=== PATIENT | female | born 1995 | race Caucasian/White ===

== ENCOUNTER 2022-10-14 16:56 | Outpatient (CLI) | payer MEDICAID, SELFPAY ==
[2022-10-14 17:25] VITALS: TEMP 36.3
[2022-10-14 17:26] VITALS: BP 106/57; PULSE 84
[2022-10-14 17:28] VITALS: BMI 27.1
[2022-10-14 17:47] LABS: Bilirubin Urine Neg (Negative); Blood Urine Trace (Negative); Glucose Urine UA Norm (Normal); Ketones Urine Negative (Negative); Leukocyte Esterase Urine Negative (Negative); Nitrate Urine Negative (Negative); Protein Urine Neg (Negative); Specific Gravity, Urine 1.025 (1.005-1.030); Urine Appearance SL Hazy (CLEAR); Urine Color Yellow (Yellow); Urobilinogen Urine Neg (Negative); pH Urine 5 (5-7)
[2022-10-14 17:49] LABS: RBC Urine 0-4 /hpf (0-2); WBC Urine 0-4 /hpf (0-5)
[2022-10-14 17:50] LABS: Add Urine Culture? No; Bacteria Urine 1+ /hpf; Mucus Urine 1+ /hpf
--- NOTE | 2022-10-14 17:51 | USR_ITS ---
PROCEDURE INFORMATION: Exam: US Retroperitoneal; Complete; Kidneys and Bladder Exam date and time: 10/14/2022 6:13 PM Age: 26 years old Clinical indication: Abdominal pain; Right; ; Patient HX: RT sided flank and back pain x 2 hours. [place] gestation, 24w 3d. ; Additional info: Low back pain TECHNIQUE: Imaging protocol: Real-time ultrasound of the retroperitoneum with image documentation. Complete exam focused on the kidneys and bladder. COMPARISON: US OB >= 14 weeks fetus [id number] 09/21/2022 1:34 PM FINDINGS: Right kidney: Right kidney measures 10.3 cm in length. No stones. There is mild pelvocaliectasis. Left kidney: Left kidney measures 11.5 cm in length. No stones. There is mild pelvocaliectasis. Urinary bladder: Unremarkable. US/US renal BI* [id number] IMPRESSION: Symmetric mild pelvocaliectasis of the kidneys.
[2022-10-14] MEDS: acetaminophen 500 mg Tablet 1000 MG PO (18:40)
== END 2022-10-14 18:50 | disposition home or self-care (01) ==
LOC: OPOB 17:05 → OBGYN 17:06
PROVIDERS: Visit Provider Family Medicine
DX: O26.899 Other specified pregnancy related conditions, unspecified trimester (principal); Z3A.00 Weeks of gestation of pregnancy not specified; M54.50 Low back pain, unspecified
CPT/HCPCS: 76770; 81001; 99211

== ENCOUNTER 2023-01-11 18:45 | Outpatient (CLI) | payer MEDICAID, SELFPAY ==
[2023-01-11 18:45] VITALS: BMI 27.2
[2023-01-11 19:01] VITALS: BP 104/69; PULSE 81
[2023-01-11] MEDS: acetaminophen 500 mg Tablet 1000 MG PO (19:33)
[2023-01-11 19:36] VITALS: BP 99/60; PULSE 80
[2023-01-11 19:47] VITALS: BP 99/60; PULSE 80; RESP 17; TEMP 36.4
== END 2023-01-11 19:50 | disposition home or self-care (01) ==
LOC: OPOB 18:52 → OBGYN 18:53
PROVIDERS: Visit Provider Family Medicine
DX: O47.1 False labor at or after 37 completed weeks of gestation (principal); Z3A.37 37 weeks gestation of pregnancy
CPT/HCPCS: 59025; 99211

== ENCOUNTER 2023-01-21 15:06 | Outpatient (CLI) | payer MEDICAID, SELFPAY ==
[2023-01-21 15:06] VITALS: RESP 17; BMI 28.3
[2023-01-21 15:22] VITALS: BP 99/61; PULSE 94
[2023-01-21 15:37] VITALS: BP 104/59; PULSE 85
[2023-01-21 15:52] VITALS: BP 101/59; PULSE 85
== END 2023-01-21 16:00 | disposition home or self-care (01) ==
LOC: OPOB 15:11 → OBGYN 15:11
PROVIDERS: Visit Provider Family Medicine
DX: O47.9 False labor, unspecified (principal); Z3A.00 Weeks of gestation of pregnancy not specified
CPT/HCPCS: 59025; 99211

== ENCOUNTER 2023-01-27 21:07 | Outpatient (CLI) | payer MEDICAID, SELFPAY ==
[2023-01-27 20:58] VITALS: BMI 28.7
[2023-01-27 21:12] VITALS: BP 108/66; PULSE 96
[2023-01-27 21:23] VITALS: RESP 16
[2023-01-27 21:30] LABS: Actim Prom Negative
[2023-01-27 21:31] LABS: Nitrazine Paper, PH Negative
[2023-01-27 22:55] VITALS: BP 110/68; PULSE 97
[2023-01-27 23:25] VITALS: BP 110/68; PULSE 97; RESP 17; TEMP 36.6
== END 2023-01-27 23:30 | disposition home or self-care (01) ==
LOC: OPOB 21:08 → OBGYN 21:09
PROVIDERS: Visit Provider Family Medicine
DX: O26.899 Other specified pregnancy related conditions, unspecified trimester (principal); N89.8 Other specified noninflammatory disorders of vagina; Z3A.00 Weeks of gestation of pregnancy not specified
CPT/HCPCS: 59025; 83986; 84112; 99211

== ENCOUNTER 2023-01-28 13:08 | Outpatient (CLI) | payer MEDICAID, SELFPAY ==
[2023-01-28] VITALS (7 sets, daily range): BP systolic 107–114; BP diastolic 64–74; PULSE 80–83; TEMP 36; BMI 28.3
== END 2023-01-28 15:10 | disposition home or self-care (01) ==
LOC: OPOB 13:15 → OBGYN 13:29
PROVIDERS: Absent Provider Family Medicine; Visit Provider Family Medicine
DX: O26.899 Other specified pregnancy related conditions, unspecified trimester (principal); R10.9 Unspecified abdominal pain; Z3A.00 Weeks of gestation of pregnancy not specified
CPT/HCPCS: 59025; 99211

== ENCOUNTER 2023-01-31 00:08 | Inpatient (IN) | payer MEDICAID, SELFPAY ==
[2023-01-30] VITALS (8 sets, daily range): BP systolic 108; BP diastolic 66; PULSE 88–100; TEMP 36.2; O2SAT 97–98; BMI 28.3
[2023-01-30 21:33] LABS: Basophils # 0.1 10^3/uL (0.0-0.1); Basophils % 0.3 %; Eosinophils # 0.1 10^3/uL (0.0-0.8); Eosinophils % 0.5 %; Hematocrit 31.1 % (37.0-47.0); Hemoglobin 9.6 g/dL (11.5-15.3); Lymphocytes # 1.7 10^3/uL (0.8-4.8); Lymphocytes % 8.9 %; Mean Corpuscular HGB Conc 30.9 g/dL (30.0-36.0); Mean Platelet Volume 11.9 fL (7.4-10.4); Monocytes # 1.2 10^3/uL (0.2-0.9); Monocytes % 6.1 %; Neutrophils % 83.5 %; Nucleated Red Blood Cells % 0 %; Platelet Count 211 10^3/cmm (130-400); Red Blood Count 3.84 10^6/uL (4.1-5.3); Red Cell Distribution Width 14.9 % (12.1-15.1)
[2023-01-30] MEDS: ampicillin 2,000 MG in sodium chloride 0.9% (plus) 50 ML 100 MG IV (21:42)
[2023-01-30] MEDS: dextrose 5%-lactated ringers 1,000 ML 125 ML IV (21:42)
[2023-01-30] MEDS: lactated ringers 1,000 ML 999 ML IV (23:30)
[2023-01-31] VITALS (50 sets, daily range): BP systolic 90–145; BP diastolic 50–84; PULSE 81–105; RESP 15–18; TEMP 36–37.6; O2SAT 90–100
--- NOTE | 2023-01-31 00:19 | ANES.PREANE2 ---
Pre-Anesthetic Assessment Height/Weight: Height 1.57 m Temp Pulse BP Pulse Ox 97.2 F L 97 108/66 98 01/30/23 20:25 01/30/23 20:44 01/30/23 20:26 01/30/23 20:44 Labor epidural Familial anesthetic complications: None Was Beta Shanice taken within 24 hours: N/A Was Clonidine taken within 24 hours: N/A Social No alcohol and No tobacco Exam alert, oriented x 3, clear to auscultation bilaterally and regular rate & rhythm Airway Submandibular: within normal limits Cervical ROM: within normal limits Mallampati: Class III Dentition: full History/ROS No significant history except as noted and No significant complaints Pulmonary None reported CV/HEM Hypertension None reported Hepatic None reported GI None reported Metabolic None reported Musc/skel None reported Neuropsych None reported Anesthetic Plan ASA status: 2 Anesthesia: Anesthesia Evaluation, Eval. for regional block and General Risk of > 500 ml blood loss (7ml/kg in children): No Medications/Allergies Home Medications Medication Instructions Recorded Confirmed Last Taken Type pren vit comb.1-iron cb-FA-DSS 1 tab PO DAILY 10/14/22 10/14/22 Unknown History Allergies Allergy/AdvReac Type Severity Reaction Status Date / Time No Known Allergies Allergy Verified 10/14/22 18:40 Current Medications Generic Name Dose Route Start Last Admin Trade Name Zohra PRN Reason Stop Dose Admin Dextrose/Lactated Ringer's 1,000 mls @ 125 mls/hr 01/30/23 21:15 01/30/23 23:30 Dextrose 5%-Lactated Ringers IV 0 mls/hr .Q8H MIKEL Infusion Oxytocin 30 unit/ Sodium 503 mls @ 1 mls/hr 01/30/23 21:45 01/30/23 23:45 Chloride IV 3 mls/hr .Q24H MIKEL 3 mls/hr Titration Protocol Lactated Ringer's 1,000 mls @ 999 mls/hr 01/30/23 23:22 01/30/23 23:30 Lactated Ringers IV 999 mls/hr .Q1H1M PRN Administration See label comments Data Anesthesia 01/30/23 21:24 Short CBC 01/30/23 Range/Units 21:24 WBC 19.0 H (4.0-10.0) 10^3/uL Hgb 9.6 L (11.5-15.3) g/dL Hct 31.1 L (37.0-47.0) % MCV 81.0 (81-99) fl Plt Count 211 (130-400) 10^3/cmm Neut % (Auto) 83.5 % Neut # (Auto) 15.90 H (1.8-7.7) 10^3/uL Cardiac Studies: No Data to Display
--- NOTE | 2023-01-31 00:53 | ANES.PROC ---
Anesthesia Procedures Procedure/Date: 01/31/23 Epidural: Time Out Performed: Yes Consents Signed: Procedure Consent and NPO Consent Consent: requested by attending/covering physician, from patient, risks and benefits reviewed and patient agrees to proceed Lumbar Level: L3-L4 Epidural position: sitting Epidural procedure: sterile prep of area (betadine), 1% lidocaine to numb the area (3 mLs), neg for paresthesia, test dose given, 1.5% xylocaine 1:200k epi (3 mL/2 mL), 0.2% Ropivacaine bolus ml (5 mLs), placed PCEA, no systemic response, sterile dressing applied, L.U.D. no apparent complications and 0.2% Ropiavacaine @ mls/hr (10 mLs/hr) Additional Comments: HELADIO 5cm. Catheter placed to 10cm
[2023-01-31] MEDS: ampicillin 1,000 MG in sodium chloride 0.9% (plus) 50 ML 100 MG IV (01:48)
--- NOTE | 2023-01-31 03:35 | PM.OPHPUD ---
Labor & Delivery H&P Update Date of Procedure: January 31, 2023 Date H&P Performed: 01/26/23 Admission Diagnosis: 27-year-old 3 para 1-0-1-1 with an estimated gestational age of 40 weeks presenting with spontaneous rupture of membranes Planned procedure: Spontaneous vaginal delivery Other information: The patient presented to the hospital complaining of rupture of membranes. She stated that her membranes may have ruptured up to 2 days ago. She had been having intermittent leaking since that time. She was found to have grossly ruptured membranes. Her is otherwise been unremarkable. She has had consistent care. Her blood type is A-. She was antibody screen negative. Her GBS status was positive. Her infectious disease profile was within normal limits. She is rubella immune. Related Problem List Diagnoses (1) 40 weeks gestation of : (2) Spontaneous rupture of membranes: (3) GBS (group B Streptococcus carrier), +RV culture, currently : A&P Assessment and plan (1) 40 weeks gestation of : I anticipate routine labor and spontaneous vaginal delivery. She is being placed on GBS protocol. Status: Acute (2) Spontaneous rupture of membranes: Status: Acute (3) GBS (group B Streptococcus carrier), +RV culture, currently : Status: Acute
--- NOTE | 2023-01-31 04:10 | P.PCNOB_ITS ---
Delivery Note: Date of delivery: January 31, 2023 Pre-delivery diagnoses: 27-year-old 3 para 1-0-1-1 at 40 weeks EGA Post-delivery diagnoses: Status post spontaneous vaginal delivery Procedure: Spontaneous vaginal delivery Delivering Physician: Aries Colvin Estimated blood loss (mL): 150 Pre-Delivery Course: The patient presented to the hospital with spontaneous rupture of membranes. Her labor was augmented with Pitocin. She progressed to complete without difficulty. heart tones demonstrated good variability with accelerations. Prior to pushing she was having early decelerations with some late deceler ations. Delivery: DELIVERY: The patient progressed to complete without difficulty. She delivered a male with a weight of 7 pounds 8 ounces with Apgars of 9, 10. The baby was delivered from the PROMISE position and placed on the mother's abdomen. The cord was then clamped and cut. There was no nuchal cord. There was no meconium. The placenta and 3 vessel cord were delivered intact shortly thereafter. The perineum and vaginal vault were carefully examined. The patient was noted to have superficial lacerations of the clitoral ku as well as between the labia majora and minora. No repair was required. Both the mother and the baby were in stable condition. Post-Delivery Status: Good A&P Assessment and plan (1) Spontaneous vaginal delivery: I anticipate routine care. (2) GBS (group B Streptococcus carrier), +RV culture, currently : Coding Level of Care Code Acute Code for Chg Fwd Diagnoses Spontaneous vaginal delivery O80 GBS (group B Streptococcus carrier), +RV culture, currently O99.820
[2023-01-31] MEDS: benzocaine-menthol 78 gm Canister 1 SPRAY TOPICAL (06:23)
[2023-01-31] MEDS: prenatal vitamin Capsule 1 CAP PO (10:43)
[2023-01-31] MEDS: ibuprofen 800 mg tablet PO ×3 (10:43→23:53)
[2023-01-31] MEDS: docusate sodium 100 mg Capsule PO (10:43)
[2023-02-01 00:33] LABS: Hemoglobin 9.1 g/dL (11.5-15.3); Mean Corpuscular HGB Conc 31.4 g/dL (30.0-36.0); Mean Corpuscular Hemoglobin 25.6 pg (28.0-34.0); Mean Corpuscular Volume 81.5 fl (81-99); Platelet Count 203 10^3/cmm (130-400); Red Blood Count 3.56 10^6/uL (4.1-5.3); White Blood Count 15.8 10^3/uL (4.0-10.0)
[2023-02-01 04:32] VITALS: BP 107/65; PULSE 68; TEMP 36.9; O2SAT 97
--- NOTE | 2023-02-01 07:49 | PM.OBGYDC ---
Discharge Providers FERRYBOAT OPERATOR CABLE Date of Admission: 01/31/23 00:08 Date of Discharge: 02/01/23 Attending Provider at Admission: Aries Colvin MD Attending Provider at Discharge: Aries Colvin MD Diagnoses at Discharge Discharge Diagnosis (1) Spontaneous vaginal delivery: Status: Acute (2) GBS (group B Streptococcus carrier), +RV culture, currently : Status: Acute Reason for Visit Reason for Visit: Possible ROM, contractions Hospital Course Hospital Course The patient arrived to the hospital complaining of rupture membranes. She is not exactly sure when the membranes were ruptured. She states it could have been sometime in the last couple of days prior to admission. Her labor was augmented with Pitocin. She progressed to complete and had an unremarkable delivery of a healthy appearing . There were no complications. Her course was also unremarkable. She breast-fed well. Her bleeding was within normal limits. Her pain was well controlled. Information Peripartum Data: Infant Delivery Method: Vaginal Physical Exam Narrative: The patient is alert. She appears comfortable. Her heart has a regular rate and rhythm with no murmurs appreciated. Lungs are clear to auscultation bilaterally. Her fundus is firm and below the umbilicus. Urinary Catheter Management: Jamison Latex: Cath Placed During This Visit: yes, but has since been removed by the nurse Reason for Continuing Indwelling Catheter: Decision to DC Catheter Urinary Catheter Date of Insertion: 01/31/23 Urinary Catheter Time of Insertion: 01:15 Date Urinary Catheter Removed: 01/31/23 Time Urinary Catheter Discontinued: 03:30 Discharge Data Studies Completed and Pending Laboratory Results WBC 15.8 10^3/uL (4.0-10.0) H 02/01/23 00:23 RBC 3.56 10^6/uL (4.1-5.3) L 02/01/23 00:23 Hgb 9.1 g/dL (11.5-15.3) L 02/01/23 00:23 Hct 29.0 % (37.0-47.0) L 02/01/23 00:23 MCV 81.5 fl (81-99) 02/01/23 00:23 MCH 25.6 pg (28.0-34.0) L 02/01/23 00:23 MCHC 31.4 g/dL (30.0-36.0) 02/01/23 00:23 RDW 15.0 % (12.1-15.1) 02/01/23 00:23 Plt Count 203 10^3/cmm (130-400) 02/01/23 00:23 MPV 12.0 fL (7.4-10.4) H 02/01/23 00:23 Neut % (Auto) 83.5 % 01/30/23 21:24 Lymph % (Auto) 8.9 % 01/30/23 21:24 [place] % (Auto) 6.1 % 01/30/23 21:24 Eos % (Auto) 0.5 % 01/30/23 21:24 Baso % (Auto) 0.3 % 01/30/23 21:24 Neut # (Auto) 15.90 10^3/uL (1.8-7.7) H 01/30/23 21:24 Lymph # (Auto) 1.7 10^3/uL (0.8-4.8) 01/30/23 21:24 [place] # (Auto) 1.2 10^3/uL (0.2-0.9) H 01/30/23 21:24 Eos # (Auto) 0.1 10^3/uL (0.0-0.8) 01/30/23 21:24 Baso # (Auto) 0.1 10^3/uL (0.0-0.1) 01/30/23 21:24 Nucleated RBC % (auto) 0 % 01/30/23 21: Nucleated RBCs # 0.0 /100WBC 01/30/23 21:24 Vitals Last Vital Signs Temp 98.4 F 02/01/23 04:32 Pulse 68 02/01/23 04:32 Resp 15 01/31/23 22:00 BP 107/65 02/01/23 04:32 Pulse Ox 97 02/01/23 04:32 O2 Del Method Room Air 02/01/23 04:32 Discharge Plan Discharge Patient Disposition: Home Condition: Stable Prescriptions: New ibuprofen 800 mg Tablet 800 mg PO TID Qty: 45 0RF Continued pren vit comb.1-iron cb-FA-DSS 1 tab PO DAILY ferrous sulfate 27 mg iron Tablet 27 mg PO DAILY Discharge Orders: Discharge Order (Routine); Ordered 02/01/23 Ordered By: Aries Colvin Referrals: Aries Colvin MD [Physician] - 6 Weeks Discharge Diet: Usual diet Discharge Activity: Limit activity as instructed Patient Instructions: Opioid Safety Discharge Attestations FERRYBOAT OPERATOR CABLE Time Spent in Discharge Care*: less than 30 min Coding Level of Care Code Acute Code for Chg Fwd Diagnoses Spontaneous vaginal delivery O80 GBS (group B Streptococcus carrier), +RV culture, currently O99.820
[2023-02-01] MEDS: prenatal vitamin Capsule 1 CAP PO (09:39)
[2023-02-01] MEDS: ibuprofen 800 mg tablet PO (09:39)
[2023-02-01] MEDS: docusate sodium 100 mg Capsule PO (09:41)
[2023-02-01 09:45] VITALS: BP 107/69; PULSE 84; TEMP 36.6; O2SAT 96
--- NOTE | 2023-02-01 10:44 | PC.NURSE ---
mother and baby in bed when rounding, safe sleep practices education reinforced
--- NOTE | 2023-02-01 11:42 | ANE.PACU2 ---
Inpatient post-anesthesia follow up: Airway intact: Yes Vital signs: Temperature 97.9 F Pulse Rate 84 Respiratory Rate 15 Blood Pressure 107/69 Pulse Oximetry 96 Oxygen Delivery Me thod Room Air Oxygen Flow Rate Fraction of Inspir ed Oxygen Hydration adequate: Yes Nausea and vomiting: No Pain level: 2 Mental status: Baseline
[2023-02-01 13:00] VITALS: BP 107/69; PULSE 84; TEMP 36.6; O2SAT 96
== END 2023-02-01 13:00 | disposition home or self-care (01) | DRG 807 ==
LOC: OPOB 00:09 → OBGYN 00:09
PROVIDERS: Admitting Provider Family Medicine; Visit Provider Family Medicine
DX: O99.824 Streptococcus B carrier state complicating childbirth (principal); Z37.0 Single live birth; O76 Abnormality in fetal heart rate and rhythm complicating labor and delivery; Z3A.40 40 weeks gestation of pregnancy
CPT/HCPCS: 36415; 51702; 59025; 59409; 83986; 85025; 85027; 99211; J0290; J2795; J7040; J7120; J7121

== ENCOUNTER 2024-02-05 10:32 | Emergency (ER) | payer MEDICAID, SELFPAY ==
[2024-02-05 10:42] VITALS: BP 119/69; PULSE 88; RESP 17; TEMP 37; O2SAT 97; BMI 25.9
--- NOTE | 2024-02-05 11:02 | ED_ITS ---
HPI - Skin/Abscess/Foreign Bdy General: Chief complaint: Skin/Abscess/Foreign Body Stated complaint: 25 weeks preg, red rash all over body Time Seen by Provider: 02/05/24 10:41 History of Present Illness: 28-year-old female presents emergency ro om complaining of a rash. Patient is 25 weeks she has rashes shoulder operative area areas over her body extremities groin periumbilical lower extremities and upper extremities bilaterally does not seem to be a clear pattern to across midline is not vesicular in nature it is very pruritic she has raised papular rash. No vesicles. No vaginal discharge or bleeding no pelvic cramping Associated symptoms: Deny chills or fever(s) Review of Systems Const: Denies: fever(s) or chills Card: Denies: chest pain Resp: Denies: dyspnea GI: Denies: abdominal pain : Denies: dysuria, urinary frequency or urinary urgency Musc: Denies: neck pain or back pain Skin/Breast: Reports: rash and pruritus Physical Exam Const: COMMON NORMALS: no acute distress GENERAL APPEARANCE: cooperative and comfortable ORIENTATION/CONSCIOUSNESS: Yes awake, Yes oriented to person, Yes oriented to place and Yes oriented to time HENMT: COMMON NORMALS: normocephalic, atraumatic and hearing grossly normal bilaterally HEAD & SCALP: normocephalic and atraumatic Resp: COMMON NORMALS: normal respiratory effort, No retractions, No use of accessory muscles and clear to auscultation bilaterally AUSCULTATION: clear to auscultation bilaterally Cardio: COMMON NORMALS: regular rate, regular rhythm and No murmurs present (Cardio) RATE: regular rate RHYTHM: regular rhythm Extremity: COMMON NORMALS: normal to inspection, capillary refill normal, no clubbing, cyanosis or edema, no calf tenderness and no pedal edema Neuro: SENSORIUM/ORIENTATION: Yes oriented to person, Yes oriented to place and Yes oriented to time Skin: OTHER: Ocular papular rash without vesicles raised mild erythema no purulent drainage no induration Course Vital Signs: Vital signs: Vital Signs Temperature 98.6 F 02/05/24 10:42 Pulse Rate 91 02/05/24 11:18 Respiratory Rate 17 02/05/24 10:42 Blood Pressure 119/69 02/05/24 10:42 Pulse Oximetry 98 02/05/24 11:18 MDM - Skin/Abscess/Foreign Bdy Medicial Decision Making Appears to be more of a contact dermatitis in various areas does not appear to be infectious or vesicular Kathy is osteoclasts of the midline currently not in any kind of dermatomal pattern. Will have her on a steroid taper can use [id number] topical steroids as well as antihistamines follow-up with her primary care No radiology studies performed this visit Discharge Plan Discharge Patient Disposition: Home Clinical Impression: Contact dermatitis Condition: Stable Prescriptions: New Medrol (Maynor) 4 mg tablets,dose pack See Rx Instructions .ROUTE .COMPLEX Qty: 21 0RF Rx Instructions: orally per package directions cetirizine 10 mg tablet 10 mg PO BID Qty: 60 0RF No Action pren vit comb.1-iron cb-FA-DSS 1 tab PO DAILY ferrous sulfate 27 mg iron Tablet 27 mg PO DAILY ibuprofen 800 mg Tablet 800 mg PO TID Qty: 45 0RF Discharge Orders: Discharge ED (Routine); Ordered 02/05/24 Ordered By: Gil Mullins Referrals: Aries Colvin MD [Primary Care Provider] - Patient Instructions: Contact Dermatitis (ED), Opioid Safety, Pain Management Activity Restrictions/Additional Instructions: Thank you for choosing [facility] for your healthcare needs today. It is very important that you follow up as instructed or that you return to the Emergency Department should you have concerns or if your condition changes or worsens in any way. You were seen today with a rash. The rash does not look infectious looks like contact dermatitis irritation of the skin rooms and he may have come to contact with. Recommended steroid taper as well as cetirizine 10 mg twice daily until resolved. Follow-up with primary care doctor. Coding Level of Care Code ED Design Printing Machine Setter for Peter Castrejon
[2024-02-05 11:18] VITALS: PULSE 91; O2SAT 98
== END 2024-02-05 11:19 | disposition home or self-care (01) ==
PROVIDERS: Emergency Provider Family Medicine; PCP Family Medicine
DX: O26.892 Other specified pregnancy related conditions, second trimester (principal); L25.9 Unspecified contact dermatitis, unspecified cause; Z3A.25 25 weeks gestation of pregnancy
CPT/HCPCS: 99283

== ENCOUNTER 2024-03-24 08:56 | Oncology outpatient (recurring) (ONCR) | payer MEDICAID, SELFPAY ==
[2024-03-24] MEDS: rho(d) immune globulin 1,500 unit Syringe 1500 UNIT IM (09:35)
== END 2024-04-17 23:59 | disposition home or self-care (01) ==
PROVIDERS: PCP Family Medicine; Visit Provider Family Medicine
DX: Z79.899 Other long term (current) drug therapy (principal); Z67.11 Type A blood, Rh negative
CPT/HCPCS: 96372; J2790

== ENCOUNTER 2024-04-29 14:25 | Outpatient (CLI) | payer MEDICAID, SELFPAY ==
[2024-04-29 14:25] VITALS: BMI 28.7
[2024-04-29 14:41] VITALS: BP 111/64; PULSE 78
[2024-04-29 14:56] VITALS: BP 105/66; PULSE 75
[2024-04-29 15:15] VITALS: BP 105/66; PULSE 75
== END 2024-04-29 15:15 | disposition home or self-care (01) ==
LOC: OPOB 14:28 → OBGYN 14:29
PROVIDERS: PCP Family Medicine; Visit Provider Family Medicine
DX: O36.8190 Decreased fetal movements, unspecified trimester, not applicable or unspecified (principal); Z3A.00 Weeks of gestation of pregnancy not specified
CPT/HCPCS: 59025; 99211

== ENCOUNTER 2024-05-11 16:11 | Outpatient (CLI) | payer MEDICAID, SELFPAY ==
[2024-05-11 16:10] VITALS: BMI 28.7
[2024-05-11 16:30] VITALS: BP 103/66; PULSE 83
[2024-05-11 17:00] VITALS: BP 98/64; PULSE 78
[2024-05-11 18:58] LABS: Nitrazine Paper, PH Negative
== END 2024-05-11 17:10 | disposition home or self-care (01) ==
LOC: OPOB 16:11 → OBGYN 16:12
PROVIDERS: Family Medicine; PCP Family Medicine; Visit Provider Family Medicine
DX: O26.899 Other specified pregnancy related conditions, unspecified trimester (principal); Z3A.00 Weeks of gestation of pregnancy not specified; N89.8 Other specified noninflammatory disorders of vagina
CPT/HCPCS: 59025; 83986; 99211

== ENCOUNTER 2024-05-14 01:09 | Inpatient (IN) | payer MEDICAID, SELFPAY ==
[2024-05-13] VITALS (10 sets, daily range): BP systolic 99–109; BP diastolic 58–72; PULSE 78–93; TEMP 35.5; BMI 30.2
[2024-05-13 21:45] LABS: Actim Prom Negative
[2024-05-14] VITALS (48 sets, daily range): BP systolic 84–128; BP diastolic 46–81; PULSE 65–97; RESP 16; TEMP 36.6–36.8; O2SAT 98–100
[2024-05-14 00:51] LABS: Basophils # 0.1 10^3/uL (0.0-0.1); Basophils % 0.4 %; Eosinophils # 0.1 10^3/uL (0.0-0.8); Eosinophils % 0.8 %; Lymphocytes # 2.3 10^3/uL (0.8-4.8); Lymphocytes % 18.9 %; Mean Corpuscular HGB Conc 31.3 g/dL (30-55); Mean Corpuscular Hemoglobin 24.8 pg (27-33); Mean Corpuscular Volume 79.2 fl (85-98); Mean Platelet Volume 11.5 fL (7.4-10.4); Monocytes # 0.8 10^3/uL (0.2-0.9); Monocytes % 6.8 %; Neutrophils # 8.84 10^3/uL (1.8-7.7); Neutrophils % 72.6 %; Nucleated Red Blood Cells % 0 %; Platelet Count 214 10^3/cmm (157-399); Red Blood Count 3.79 10^6/uL (3.85-5.65); Red Cell Distribution Width 16.6 % (12.1-15.1); White Blood Count 12.18 10^3/uL (3.29-11.43)
[2024-05-14] MEDS: miSOPROStol 100 mcg tablet 25 MCG VAGINAL ×2 (01:00→06:24)
[2024-05-14] MEDS: lactated ringers 1,000 ML 999 ML IV (03:45)
[2024-05-14] MEDS: dextrose 5%-lactated ringers 1,000 ML 125 ML IV (04:50)
[2024-05-14] MEDS: ROPivacaine syringe 100 MG/50 ML SYRINGE 10 MG EPIDURAL ×2 (05:06→10:13)
--- NOTE | 2024-05-14 05:08 | P.ANESASSM_ITS ---
Pre-Anesthetic Assessment Height/Weight: Height 1.55 m Weight 72.575 kg Temp Pulse BP Pulse Ox O2 Del Method 95.9 F L 90 107/62 99 Room Air 05/13/24 23:30 05/14/24 05:05 05/14/24 05:05 05/14/24 05:03 05/14/24 00:04 Preop Diagnosis: labor pain epidural Familial anesthetic complications: none Was Beta Shanice taken within 24 hours: N/A Was Clonidine taken within 24 hours: N/A Social No alcohol and No tobacco Exam alert and oriented x 3 Airway Submandibular: within normal limits Cervical ROM: within normal limits Mallampati: Class II Dentition: full History/ROS No significant complaints Anesthetic Plan ASA status: 2 Anesthesia: Anesthesia Evaluation and Regional (specify below) Risk of > 500 ml blood loss (7ml/kg in children): No Medications/Allergies Home Medications Medication Instructions Recorded Confirmed Last Taken Type pren vit comb.1-iron cb-FA-DSS 1 tab PO DAILY 10/14/22 05/13/24 05/13/24 History ferrous sulfate 27 mg iron tablet 27 mg PO DAILY 01/31/23 05/13/24 05/13/24 History ibuprofen 800 mg tablet 800 mg PO TID #45 tabs 02/01/23 05/13/24 Unknown Rx cetirizine 10 mg tablet 10 mg PO BID #60 tabs 02/05/24 05/13/24 Unknown Rx methylprednisolone 4 mg tablets in See Rx Instructions PO .COMPLEX 02/05/24 05/13/24 Unknown Rx a dose pack (Medrol (Maynor)) #21 ea Allergies Allergy/AdvReac Type Severity Reaction Status Date / Time No Known Allergies Allergy Verified 05/13/24 22:56 Current Medications Generic Name Dose Route Start Last Admin Trade Name Freq PRN Reason Stop Dose Admin Dextrose/Lactated Ringer's 1,000 mls @ 125 mls/hr 05/14/24 00:02 05/14/24 04:50 Dextrose 5%-Lactated Ringers IV 125 mls/hr .Q8H PRN Administration per label comments Lactated Ringer's 1,000 mls @ 999 mls/hr 05/14/24 03:37 05/14/24 04:46 Lactated Ringers IV Infused .Q1H1M PRN Infusion See label comments PFSH Anesthesia Female Reproductive History : 4 Data Anesthesia 05/14/24 00:16 Short CBC 05/14/24 Range/Units 00:16 WBC 12.18 H (3.29-11.43) 10^3/uL Hgb 9.40 L (11.27-16.99) g/dL Hct 30.0 L (36-47) % MCV 79.2 L (85-98) fl Plt Count 214 (157-399) 10^3/cmm Neut % (Auto) 72.6 % Neut # (Auto) 8.84 H (1.8-7.7) 10^3/uL Blood Bank 05/14/24 00:16 Blood Type A Negative Rho(D) Type Rh negative Antibody Screen Positive Cardiac Studies: 2 No Data to Display
--- NOTE | 2024-05-14 05:09 | ANES.PROC ---
Anesthesia Procedures Procedure/Date: 05/14/24 Epidural: Time Out Performed: Yes Consents Signed: Procedure Consent Consent: from patient, risks and benefits reviewed and patient agrees to proceed Lumbar Level: L3-L4 Epidural position: sitting Epidural procedure: sterile prep of area, 1% lidocaine to numb the area, 18 g needle, negative for paresthesia passed, neg for paresthesia, test dose given, 1.5% xylocaine 1:200k epi, placed PCEA, no systemic response, sterile dressing applied and L.U.D. no apparent complications Additional Comments: HELADIO at 4. negative aspiration. taped at 11 at skin. tolerate very well.
[2024-05-14] MEDS: hyDROXYzine 25 mg Capsule 50 MG PO (05:54)
--- NOTE | 2024-05-14 11:04 | P.HPUD_ITS ---
Labor & Delivery H&P Update Date of Procedure: May 14, 2024 Date H&P Performed: 01/26/23 Admission Diagnosis: 28-year-old 3 para 2-0-0-2 at 40 weeks estimated gestational age presenting with contractions Planned procedure: Vaginal delivery Other information: The patient is a 28-year-old 3 para 2-0-0-2 at 40 weeks estimated gestational age who presented to the hospital last night with contractions. She was checked again 3 hours after arrival. She was noted to be having contractions that were not consistent. Her cervix did not change, but her cervix was 3 cm dilated and she lived over an hour away. Due to the fact that she is a 5 with a history of relatively fast labors and her distance from the hospital as well as her 40-week gestational age, I elected to induce her. Her is otherwise been relatively unremarkable. She had consistent care. Her labs are as follows. Her blood type is A-. Her an tibody screen is negative. She received RhoGAM shot on 24 March. Her drug screen was negative. She passed her glucose screen. She was GBS negative. She is rubella immune. The remainder of her infectious disease profile is within normal limits. Related Problem List Diagnoses (1) 40 weeks gestation of : A&P Assessment and plan (1) 40 weeks gestation of : I anticipate routine induction and labor. Status: Acute
[2024-05-14] MEDS: lidocaine 2% INJ 20 mL INJECTION (11:40)
--- NOTE | 2024-05-14 11:54 | PM.DELIVERY ---
Delivery Note: Date of delivery: May 14, 2024 Pre-delivery diagnoses: 28-year-old 3 para 2-0-0-2 at 40 weeks estimated gestational age Post-delivery diagnoses: Status post spontaneous vaginal delivery Procedure: Spontaneous vaginal delivery Delivering Physician: Aries Colvin Estimated blood loss (mL): 100 Pre-Delivery Course: The patient presented to the hospital with contractions. Cytotec x 2 was placed. An epidural was placed. An amniotomy was performed. She progressed to complete without difficulty. Delivery: DELIVERY: The patient progressed to complete without difficulty. She delivered a female with a weight of 7 pounds 12 ounces with Apgars of 7, 9. The baby was delivered from the PROMISE position and placed on the mother's abdomen. The cord was then clamped and cut. There was no nuchal cord. There was no meconium. The placenta and 3 vessel cord were delivered intact shortly thereafter. The perineum and vaginal vault were carefully examined. The patient had multiple superficial lacerations along the anterior aspect of her labia minora and majora. She also had a second-degree posterior midline tear which was repaired with 3-0 Vicryl in usual fashion. Both the mother and the baby were in stable condition. Post-Delivery Status: Good History History History 3 Term 3 0 Miscarriages/Ectopic 0 Living Children 3 A&P Assessment and plan (1) Spontaneous vaginal delivery: I anticipate routine care Coding Level of Care Code Acute Code for Chg Fwd Diagnoses Spontaneous vaginal delivery O80
--- NOTE | 2024-05-14 14:00 | ANE.PACU2 ---
Inpatient post-anesthesia follow up: Airway intact: Yes Vital signs: Temperature 98.1 F Pulse Rate 72 Respiratory Rate 15 Blood Pressure 98/54 Pulse Oximetry 100 Oxygen Delivery Me thod Room Air Oxygen Flow Rate Fraction of Inspir ed Oxygen Hydration adequate: Yes Nausea and vomiting: No Pain level: 1 Mental status: Baseline Epidural Start/End: Epidural Start Date: 05/14/24 Epidural Start Time: 04:45 Epidural End Date: 05/14/24 Epidural End Time: 12:46
[2024-05-14] MEDS: ibuprofen 800 mg tablet PO ×2 (14:41→21:27)
[2024-05-14] MEDS: lanolin oint 7 gm 1 APPLIC TOPICAL (14:41)
[2024-05-14] MEDS: benzocaine-menthol 78 gm Canister 1 SPRAY TOPICAL (14:41)
[2024-05-14] MEDS: oxytocin 30 UNIT/500 ML BAG 600 UNIT IV (14:42)
--- NOTE | 2024-05-14 18:14 | PC.NURSE ---
This nurse went into pt room at 1800 and pt said she had a gush of fluid and this nurse noted a blood dripping down pt onto floor. Pt was walked to the bed and fundal rub as done by Marcio Macias Rn. Clot was noted to be coming out of vagina and pad was soaked. Fundus was firm 2 below with small amount of bleeding. Pad was weighed and noted to weigh 155 grams.
[2024-05-14] MEDS: docusate sodium 100 mg Capsule PO (21:27)
[2024-05-15 02:33] VITALS: BP 109/62; PULSE 76; RESP 16; O2SAT 99
[2024-05-15 02:58] LABS: Hematocrit 26.7 % (36-47); Mean Corpuscular Hemoglobin 23.9 pg (27-33); Mean Corpuscular Volume 79.7 fl (85-98); Mean Platelet Volume 11.2 fL (7.4-10.4); Platelet Count 203 10^3/cmm (157-399); Red Blood Count 3.35 10^6/uL (3.85-5.65); Red Cell Distribution Width 16.7 % (12.1-15.1); White Blood Count 14.51 10^3/uL (3.29-11.43)
[2024-05-15 04:29] VITALS: BP 113/69; PULSE 82; RESP 16; TEMP 36.7; O2SAT 100
--- NOTE | 2024-05-15 08:33 | PM.OBGYDC ---
Discharge Providers OPTOMETRIC TECHNICIAN Date of Admission: 05/14/24 01:09 Date of Discharge: 05/28/24 Attending Provider at Admission: Aries Colvin MD Attending Provider at Discharge: Aries Colvin MD Primary Care Provider: Aries Colvin MD Diagnoses at Discharge Discharge Diagnosis (1) Spontaneous vaginal delivery: Status: Resolved Reason for Visit Reason for Visit: possible contractions and possible ROM Hospital Course Hospital Course The patient presented to the hospital at 40 weeks with contractions. Her labor was augmented with Cytotec x 2. An amniotomy was performed. She progressed to complete and had an unremarkable vaginal delivery. Her course was also unremarkable. Her bleeding was within normal limits. Her pain was well-controlled. There were no concerns. Information Peripartum Data: Delivery Method: Vaginal Physical Exam Narrative: The patient is alert. She appears comfortable. Her heart has a regular rate and rhythm with no murmurs appreciated. Lungs are clear to auscultation bilaterally. Her fundus is firm and below the umbilicus. Urinary Catheter Management: Jamison Latex: Cath Placed During This Visit: yes Reason for Continuing Indwelling Catheter: Required Immobilization for Trauma or Surgery or Anesthesia Urinary Catheter Date of Insertion: 05/14/24 Urinary Catheter Time of Insertion: 05:30 History History History 3 Term 3 0 Miscarriages/Ectopic 0 Living Children 3 Discharge Data Studies Completed and Pending Pending at discharge Category Date Time Status Antibody Identification Routine Lab 05/14/24 00:16 Results Complete Crossmatch Routine Lab 05/14/24 00:16 Results Type and Screen Routine Lab 05/13/24 23:59 Results Laboratory Results WBC 14.51 10^3/uL (3.29-11.43) H 05/15/24 02:47 RBC 3.35 10^6/uL (3.85-5.65) L 05/15/24 02:47 Hgb 8.00 g/dL (11.27-16.99) L 05/15/24 02:47 Hct 26.7 % (36-47) L 05/15/24 02:47 MCV 79.7 fl (85-98) L 05/15/24 02:47 MCH 23.9 pg (27-33) L 05/15/24 02:47 MCHC 30.0 g/dL (30-55) 05/15/24 02:47 RDW 16.7 % (12.1-15.1) H 05/15/24 02:47 Plt Count 203 10^3/cmm (157-399) 05/15/24 02:47 MPV 11.2 fL (7.4-10.4) H 05/15/24 02:47 Neut % (Auto) 72.6 % 05/14/24 00:16 Lymph % (Auto) 18.9 % 05/14/24 00:16 [place] % (Auto) 6.8 % 05/14/24 00:16 Eos % (Auto) 0.8 % 05/14/24 00:16 Baso % (Auto) 0.4 % 05/14/24 00:16 Neut # (Auto) 8.84 10^3/uL (1.8-7.7) H 05/14/24 00:16 Lymph # (Auto) 2.3 10^3/uL (0.8-4.8) 05/14/24 00:16 [place] # (Auto) 0.8 10^3/uL (0.2-0.9) 05/14/24 00:16 Eos # (Auto) 0.1 10^3/uL (0.0-0.8) 05/14/24 00:16 Baso # (Auto) 0.1 10^3/uL (0.0-0.1) 05/14/24 00:16 Nucleated RBC % (auto) 0 % 05/14/24 00:16 Nucleated RBCs # 0.0 /100WBC 05/14/24 00:16 Insulin-like GF I Negative 05/13/24 21:32 Blood Type A Negative 05/14/24 00:16 Rho(D) Type Rh negative 05/14/24 00:16 Antibody Screen Positive 05/14/24 00:16 Antibody Identification Anti-D 05/14/24 00:16 Vitals Last Vital Signs Temp 98.0 F 05/15/24 04:29 Pulse 82 05/15/24 04:29 Resp 16 05/15/24 04:29 BP 113/69 05/15/24 04:29 Pulse Ox 100 05/15/24 04:29 O2 Del Method Room Air 05/15/24 04:29 Results Labs OB ([facility]): Blood Type A Negative 05/14/24 Antibody Screen Positive 05/14/24 Hct 29.4 % (36-47) L 05/17/24 Hgb 8.90 g/dL (11.27-16.99) L 05/17/24 Rho(D) Type Rh negative 05/14/24 Plt Count 273 10^3/cmm (157-399) 05/17/24 Micro Urine Specimen 05/17/24 Discharge Plan Discharge Patient Disposition: Home Condition: Stable Prescriptions: New ibuprofen 800 mg Tablet 800 mg PO TID Qty: 45 0RF Continued pren vit comb.1-iron cb-FA-DSS 1 tab PO DAILY Discontinued methylprednisolone [Medrol (Maynor)] 4 mg tablets,dose pack See Rx Instructions .ROUTE .COMPLEX Qty: 21 0RF Rx Instructions: orally per package directions cetirizine 10 mg tablet 10 mg PO BID Qty: 60 0RF ferrous sulfate 27 mg iron Tablet 27 mg PO DAILY ibuprofen 800 mg Tablet 800 mg PO TID Qty: 45 0RF Discharge Orders: Discharge Order (Routine); Ordered 05/15/24 Ordered By: Aries Colvin Referrals: Aries Colvin MD [Primary Care Provider] - 6 Weeks Discharge Diet: Usual diet Discharge Activity: Limit activity as instructed Patient Instructions: Depression (DC), Perineal Care (DC), Preeclampsia and Eclampsia After Delivery (GEN), OB Care at Home, Opioid Safety, Abnormal Bleeding Discharge Attestations OPTOMETRIC TECHNICIAN Time Spent in Discharge Care*: less than 30 min Coding Level of Care Code Acute Code for Chg Fwd Diagnoses Spontaneous vaginal delivery O80
[2024-05-15] MEDS: docusate sodium 100 mg Capsule PO (08:56)
[2024-05-15] MEDS: ibuprofen 800 mg tablet PO (08:56)
[2024-05-15] MEDS: PRENATAL VIT NO.130/IRON/FOLIC 1 EACH TABLET PO (08:56)
[2024-05-15 10:00] VITALS: BP 106/64; PULSE 64; RESP 15; TEMP 36.7
[2024-05-15 13:54] VITALS: BP 98/54; PULSE 72; RESP 15; TEMP 36.7
[2024-05-15 13:55] VITALS: BP 98/54; PULSE 72; RESP 15; TEMP 36.7
== END 2024-05-15 13:55 | disposition home or self-care (01) | DRG 807 ==
LOC: OPOB 01:10 → OBGYN 01:10
PROVIDERS: Admitting Provider Family Medicine; PCP Family Medicine; Visit Provider Family Medicine
DX: O70.1 Second degree perineal laceration during delivery (principal); Z37.0 Single live birth; Z3A.40 40 weeks gestation of pregnancy
CPT/HCPCS: 36415; 51702; 59025; 59409; 84112; 85025; 85027; 86850; 86870; 86900; 99211; J2590; J2795; J7120; J7121

== ENCOUNTER 2024-05-17 20:31 | Emergency (ER) | payer MEDICAID, SELFPAY ==
[2024-05-17 20:35] VITALS: BP 106/74; PULSE 87; TEMP 36.9; O2SAT 97; BMI 27.5
[2024-05-17 20:40] VITALS: BP 104/74; PULSE 76; O2SAT 98
--- NOTE | 2024-05-17 21:00 | W.ED.ABDPA2 ---
HPI - Abdominal Pain General: Chief Complaint: Abdominal Pain Stated Complaint: abd pain Time Seen by Provider: 05/17/24 20:58 History of Present Illness: 28-year-old female comes in today for complaints of pelvic pain and cramping. Patient also reports some loss of clots. Patient appears nontoxic. Patient appears no pain. Patient reports no fever. Patient does report some nausea. Related Data Home Medications Medication Instructions Recorded Confirmed pren vit comb.1-iron cb-FA-DSS 1 tab PO DAILY 10/14/22 05/13/24 Previous Rx's Medication Instructions Recorded ibuprofen 800 mg tablet 800 mg PO TID #45 tabs 05/15/24 Allergies Allergy/AdvReac Type Severity Reaction Status Date / Time No Known Allergies Allergy Verified 05/17/24 20:40 Review of Systems General: Reports: 10 or more systems reviewed and unremarkable except in HPI and below Physical Exam Const: COMMON NORMALS: alert HENMT: COMMON NORMALS: normocephalic HEAD & SCALP: normocephalic Neck/C-Spine: COMMON NORMALS: full ROM Resp: COMMON NORMALS: normal respiratory effort Cardio: COMMON NORMALS: regular rate RATE: regular rate GI: COMMON NORMALS: Soft to palpation and non-tender PALPATION: Yes Soft to palpation : OTHER: Fundus was firm to palpation. 2+. Back/Pelvis: COMMON NORMALS: thoracic and lumbar spine normal to inspection Extremity: COMMON NORMALS: full ROM Neuro: SENSORIUM/ORIENTATION: Yes alert Skin: COMMON NORMALS: turgor normal GENERAL SKIN EXAM: turgor normal Course Vital Signs: Vital signs: Vital Signs Temperature 98.4 F 05/17/24 20:35 Pulse Rate 78 05/17/24 22:30 Blood Pressure 100/75 05/17/24 22:30 Pulse Oximetry 98 05/17/24 22:30 Oxygen Delivery Me thod Room Air 05/17/24 22:30 MDM - Abdominal Pain Medical Decision Making 28-year-old female comes in today for complaints of increased pelvic pain and vaginal bleeding with clots. On exam patient appears nontoxic. Respirations are even. Abdomen soft with pelvic tenderness. Patient has a fundal height of approximately 2+ with firm to palpation. Vital signs are normal. Differential diagnosis includes anemia, bleeding, infection. CBC noted a hemoglobin 8.9. Patient had some mild leukocytosis but it was similar to her her discharge status on the . Urinalysis has no significant amount of white blood cells in the urine. Patient appears nontoxic. No signs of severe illness or injury was noted. Patient was discharged home with recommendations for follow-up with primary care in the morning. Recommend return to the ER for worsening symptoms. Patient reported understanding and agreed with plan. Lab Data 05/17/24 22:28 05/17/24: Labs/Radiology: Laboratory Results WBC 14.92 10^3/uL (3.29-11.43) H 05/17/24: RBC 3.64 10^6/uL (3.85-5.65) L 05/17/24: Hgb 8.90 g/dL (11.27-16.99) L 05/17/24: Hct 29.4 % (36-47) L 05/17/24: MCV 80.8 fl (85-98) L 05/17/24: MCH 24.5 pg (27-33) L 05/17/24: MCHC 30.3 g/dL (30-55) 05/17/24: RDW 16.9 % (12.1-15.1) H 05/17/24: Plt Count 273 10^3/cmm (157-399) 05/17/24: MPV 11.2 fL (7.4-10.4) H 05/17/24: Neut % (Auto) 81.4 % 05/17/24: Lymph % (Auto) 10.9 % 05/17/24: [place] % (Auto) 5.0 % 05/17/24: Eos % (Auto) 1.9 % 05/17/24: Baso % (Auto) 0.3 % 05/17/24: Neut # (Auto) 12.15 10^3/uL (1.8-7.7) H 05/17/24: Lymph # (Auto) 1.6 10^3/uL (0.8-4.8) 05/17/24: [place] # (Auto) 0.8 10^3/uL (0.2-0.9) 10/30/24 22:28 Eos # (Auto) 0.3 10^3/uL (0.0-0.8) 05/17/24 22:28 Baso # (Auto) 0.0 10^3/uL (0.0-0.1) 05/17/24 22:28 Nucleated RBC % (auto) 0 % 05/17/24 22:28 Nucleated RBCs # 0.0 /100WBC 05/17/24 22:28 Urine Color Yellow (Yellow) 05/17/24 21:45 Urine Appearance Clear (CLEAR) 05/17/24 21:45 Urine pH 6.5 (5-7) 05/17/24 21:45 Ur Specific [place] 1.024 (1.005-1.030) 05/17/24 21:45 Urine Protein Trace (Negative) A 05/17/24 21:45 Urine Glucose (UA) Negative (Normal) 05/17/24 21:45 Urine Ketones Negative (Negative) 05/17/24 21:45 Urine Blood 3+ (Negative) A 05/17/24 21:45 Urine Nitrate Negative (Negative) 05/17/24 21:45 Urine Bilirubin Negative (Negative) 05/17/24 21:45 Urine Urobilinogen 1.0 mg/dL (Negative) 05/17/24 21:45 Ur Leukocyte Esterase 1+ (Negative) A 05/17/24 21:45 Urine RBC 15-25 /hpf (0-2) H 05/17/24 21:45 Urine WBC 10-15 /hpf (0-5) H 05/17/24 21:45 Ur Squamous Epith Cells 0-4 /hpf (0-5) H 05/17/24 21:45 Amorphous Sediment Not Reportable 05/17/24 21:45 Urine Bacteria Trace /hpf (NONE) 05/17/24 21:45 Urine Mucus 1+ /hpf 05/17/24 21:45 No radiology studies performed this visit Discharge Plan Discharge Patient Disposition: Home Clinical Impression: perineal pain Anemia Qualifiers: Anemia type: unspecified type Qualified Code(s): D64.9 - Anemia, unspecified Condition: Stable Prescriptions: No Action pren vit comb.1-iron cb-FA-DSS 1 tab PO DAILY ibuprofen 800 mg Tablet 800 mg PO TID Qty: 45 0RF Discharge Orders: Discharge ED (Routine); Ordered 05/17/24 Ordered By: Mani Moran Referrals: Aries Colvin MD [Primary Care Provider] - Discharge Diet: Usual diet Discharge Activity: Increase activity as tolerated Patient Instructions: Bleeding (ED) Activity Restrictions/Additional Instructions: Eat a healthy diet. Drink plenty of fluids. Follow-up with SUBSTATION SUPERINTENDENT for further recommendations and treatment. Return to ED for worsening symptoms such as high fever, inability to hold fluids down, worsening bleeding greater than 1 pad saturated an hour. Coding Level of Care Code ED Carousel Attendant for Peter Castrejon
[2024-05-17 21:10] VITALS: BP 102/68; PULSE 86; O2SAT 99
[2024-05-17 21:30] VITALS: BP 109/74; PULSE 82; O2SAT 99
[2024-05-17 21:56] LABS: Bilirubin Urine Negative (Negative); Blood Urine 3+ (Negative); Glucose Urine UA Negative (Normal); Ketones Urine Negative (Negative); Leukocyte Esterase Urine 1+ (Negative); Nitrate Urine Negative (Negative); Protein Urine Trace (Negative); Specific Gravity, Urine 1.024 (1.005-1.030); Urine Appearance Clear (CLEAR); Urine Color Yellow (Yellow); pH Urine 6.5 (5-7)
[2024-05-17 22:12] LABS: Add Urine Microscopic? YES; Bacteria Urine TRACE /hpf; RBC Urine 15-25 /hpf (0-2); Squamous Epithelial Cell Urine 0-4 /hpf (0-5)
[2024-05-17 22:13] LABS: Add Urine Culture? Yes; Mucus Urine 1+ /hpf
[2024-05-17 22:30] VITALS: BP 100/75; PULSE 78; O2SAT 98
[2024-05-17 22:54] LABS: Basophils % 0.3 %; Eosinophils # 0.3 10^3/uL (0.0-0.8); Eosinophils % 1.9 %; Hematocrit 29.4 % (36-47); Lymphocytes # 1.6 10^3/uL (0.8-4.8); Lymphocytes % 10.9 %; Mean Corpuscular HGB Conc 30.3 g/dL (30-55); Mean Corpuscular Hemoglobin 24.5 pg (27-33); Mean Corpuscular Volume 80.8 fl (85-98); Mean Platelet Volume 11.2 fL (7.4-10.4); Monocytes # 0.8 10^3/uL (0.2-0.9); Neutrophils # 12.15 10^3/uL (1.8-7.7); Neutrophils % 81.4 %; Nucleated Red Blood Cells % 0 %; Platelet Count 273 10^3/cmm (157-399); Red Blood Count 3.64 10^6/uL (3.85-5.65); Red Cell Distribution Width 16.9 % (12.1-15.1); White Blood Count 14.92 10^3/uL (3.29-11.43)
[2024-05-17 23:09] LABS: Alanine Aminotransferase 42 U/L (0-33); Albumin Level 3.2 g/dL (3.5-5.2); Alkaline Phosphatase 131 U/L (35-105); Anion Gap 13.7 (5-19); Aspartate Amino Transferase 32 U/L (0-32); Blood Urea Nitrogen 8 mg/dL (6-20); Calcium 7.9 mg/dL (8.5-10.5); Carbon Dioxide 23 mmol/L (22-29); Chloride 104 mmol/L (98-107); Creatinine Clr Calc Pharmacy 148.4013; Globulin 2.8 g/dL (1.3-4.6); Glomerular Filtration Rate 149.1 mL/min (90-130); Glucose 83 mg/dL (65-115); Lipase 21 U/L (13-60); Osmolality Calculated 281 mOsm/kg (285-295); Potassium 3.7 mmol/L (3.5-5.1); Sodium 137 mmol/L (136-145); Total Bilirubin 0.2 mg/dL (0.15-1.2)
[2024-05-17 23:15] VITALS: BP 116/82; PULSE 76; O2SAT 99
== END 2024-05-17 23:17 | disposition home or self-care (01) ==
PROVIDERS: Emergency Provider Nurse Practitioner Family; PCP Family Medicine
DX: R10.2 Pelvic and perineal pain (principal); D64.9 Anemia, unspecified
CPT/HCPCS: 36415; 80053; 81001; 83690; 85025; 87086; 99283

== ENCOUNTER 2025-05-22 11:56 | Oncology outpatient (recurring) (ONCR) | payer MEDICAID, SELFPAY | END 2025-06-17 23:59 | disposition home or self-care (01) | PROVIDERS: PCP Family Medicine; Visit Provider Family Medicine | DX: O26.899 Other specified pregnancy related conditions, unspecified trimester (principal); Z79.899 Other long term (current) drug therapy | CPT/HCPCS: 96372; J2790 ==